=== PATIENT | male | born 1945 | race Caucasian/White ===

== ENCOUNTER → 2017-06-22 | Outpatient (CLI) | payer MEDICARE, OTHER | END | disposition home or self-care (01) | LOC: GMA 10:33 | PROVIDERS: ATTEND Nurse Practitioner Family | DX: E78.2 Mixed hyperlipidemia (principal); Z12.5 Encounter for screening for malignant neoplasm of prostate | CPT/HCPCS: 84443; 84550; G0103 ==

== ENCOUNTER → 2018-02-04 | Outpatient (CLI) | payer MEDICARE, OTHER ==
--- NOTE | 2018-02-04 11:39 | RAD ---
EXAM DESCRIPTION: Hand,Right 3 Views CLINICAL HISTORY: HAND PAIN COMPARISON: None Available. TECHNIQUE: AP, LATERAL, AND OBLIQUE FINDINGS: Three-view right hand shows buckled appearance of the distal radius. No fat-pad displacement is seen on the lateral view and this may be an old injury. Clinical correlation recommended. Bones of the carpus appear intact. No metacarpal fractures. Mild degenerative narrowing of the first and third metacarpal phalangeal joints with degenerative changes at the interphalangeal joint of the thumb. Degenerative narrowing of the DIP joints is seen. Radiopaque foreign body in the soft tissues between the heads of first and second metatarsals. IMPRESSION: Deformity of the distal radius, most likely an old healed fracture. See above. Degenerative changes as described. Electronically signed by: Homero Montoya MD 02/04/2018 11:38 AM CDT
== END ==
LOC: RAD 11:12
PROVIDERS: ATTEND Nurse Practitioner Family
DX: M79.642 Pain in left hand (principal); M21.931 Unspecified acquired deformity of right forearm

== ENCOUNTER → 2018-07-10 | Outpatient (CLI) | payer MEDICARE, OTHER | LOC: GMAH 11:16 | PROVIDERS: ATTEND Family Medicine | DX: I10 Essential (primary) hypertension (principal); E78.2 Mixed hyperlipidemia; Z12.5 Encounter for screening for malignant neoplasm of prostate | CPT/HCPCS: 84443; 84550; G0103 ==

== ENCOUNTER → 2019-07-16 | Outpatient (CLI) | payer MEDICARE, OTHER | LOC: GMA MATASK 10:51 | PROVIDERS: ATTEND Family Medicine | DX: I10 Essential (primary) hypertension (principal); E78.2 Mixed hyperlipidemia; Z12.5 Encounter for screening for malignant neoplasm of prostate | CPT/HCPCS: 84443; 84550; G0103 ==

== ENCOUNTER → 2020-04-11 | Outpatient (CLI) | payer MEDICARE, OTHER ==
--- NOTE | 2020-04-12 14:37 | MRI ---
EXAM DESCRIPTION: MRI Knee,Right CLINICAL HISTORY: PAIN COMPARISON: None Available. TECHNIQUE: MRI of the right knee is performed according to our usual protocol with multiplanar multi sequence imaging. FINDINGS: Small knee joint effusion. Small popliteal cyst. Mixed grade 2/3 chondrosis medial femoral condyle with a 5 mm area of full-thickness grade 4 cartilage loss in the posterior central weightbearing portion medial femoral condyle. Subjacent reactive edema and eburnation. Articular cartilage otherwise well preserved. Horizontal cleavage plane tear mid body and posterior horn medial meniscus extends all the way to the posterior central attachment. No displaced fragment. Lateral meniscus intact. Cruciate and collateral ligaments intact. IMPRESSION: 1. Medial meniscus tear 2. Significant medial compartment chondrosis Electronically signed by: Leo Mon MD 04/12/2020 2:35 PM CDT
== END ==
LOC: MRI 09:28
PROVIDERS: ATTEND Family Medicine
DX: S83.241A Other tear of medial meniscus, current injury, right knee, initial encounter (principal); M94.261 Chondromalacia, right knee

== ENCOUNTER → 2020-04-21 | Outpatient (CLI) | payer MEDICARE, OTHER ==
--- NOTE | 2020-04-21 15:42 | RAD ---
EXAM DESCRIPTION: Knee,Right 1 or 2 Views CLINICAL HISTORY: 75 years Male, KNEE PAIN 45 DEGREE COMPARISON: None. TECHNIQUE: Single view radiograph of the right knee. IMPRESSION: Single 45 degrees flexion standing view of the right knee demonstrates no acute displaced fracture. Probably moderate joint space narrowing at the weightbearing knee compartments. No significant subchondral sclerosis. Included soft tissues unremarkable Electronically signed by: Markos Ridley MD 04/21/2020 3:40 PM CDT
--- NOTE | 2020-04-21 17:06 | RAD ---
EXAM DESCRIPTION: Pelvis: CR/DR/XR CLINICAL HISTORY: HIP PAINz COMPARISON: None Available. TECHNIQUE: One view AP Pelvis FINDINGS: No fracture dislocation. Minimally decreased bone density. Bilateral hip joint space narrowing. Minimal hypertrophy of the acetabular margins. Enthesophytes on the iliac crests, pubic Bones and ischial tuberosities. Arthrosis in the superior right SI joint. No abnormal radiodense objects in the soft tissues or joint spaces. IMPRESSION: Enthesophytes and arthrosis as described. Bone density slightly decreased. No fracture or dislocation. Electronically signed by: Ahsan Vanegas MD 04/21/2020 5:04 PM CDT
== END ==
LOC: RAD 07:41
PROVIDERS: ATTEND Orthopaedic Surgery
DX: M76.21 Iliac crest spur, right hip (principal); M76.22 Iliac crest spur, left hip; M47.898 Other spondylosis, sacral and sacrococcygeal region; M85.9 Disorder of bone density and structure, unspecified; M25.561 Pain in right knee; M25.9 Joint disorder, unspecified